=== PATIENT | male | born 1965 | race Caucasian/White ===

== ENCOUNTER 2020-01-25 23:43 | Emergency (ER) | payer MEDICARE, SELFPAY ==
[~2020-01-25] VITALS: Ht 177.8 cm; Wt 102.3 kg
[~2020-01-25 23:43] MED LIST: CARV-50 PO; LISI-600 PO
[2020-01-26 00:29] LABS: BASOPHILS % (AUTO) 0.1 % (0-1); EOSINOPHILS # (AUTO) 0.1 X10'3 (0-0.9); EOSINOPHILS % (AUTO) 1.4 % (0-6); HEMATOCRIT 45.2 % (42.0-52.0); HEMOGLOBIN 15.8 g/dl (14.0-17.9); LYMPHOCYTES # (AUTO) 1.8 X10'3 (1.1-4.8); LYMPHOCYTES % (AUTO) 16.7 % (21-51); MEAN CORPUSCULAR HEMOGLOBIN 32.8 PG (27.0-31.0); MEAN CORPUSCULAR VOLUME 93.6 FL (78-98); MEAN PLATELET VOLUME 6.5 FL (7.4-10.4); MONOCYTES % (AUTO) 9.5 % (2-12); NEUTROPHILS # (AUTO) 7.8 X10'3 (1.8-7.7); NEUTROPHILS % (AUTO) 72.3 % (42-75); PLATELET COUNT 427 X10'3 (140-440); RED BLOOD COUNT 4.83 X10'6 (4.70-6.10); RED CELL DISTRIBUTION WIDTH 13.4 % (11.5-14.5); WHITE BLOOD COUNT 10.8 X10'3 (4.5-11.0)
[2020-01-26 00:34] LABS: ALANINE AMINOTRANSFERASE 47 U/L (12-78); ALBUMIN 3.7 G/DL (3.4-5.0); ALBUMIN/GLOBULIN RATIO 0.8 (1.1-1.5); ALKALINE PHOSPHATASE 119 IU/L (46-116); ANION GAP 11 (8-16); ASPARTATE AMINO TRANSFERASE 28 U/L (10-37); BILIRUBIN,TOTAL 0.7 MG/DL (0.1-1.0); BLOOD UREA NITROGEN 25 MG/DL (7-18); CALCIUM 8.6 MG/DL (8.5-10.1); CHLORIDE 100 MMOL/L (99-107); CREATININE 2.49 MG/DL (0.60-1.10); GLUCOSE 138 MG/DL (70-104); LIPASE 137 U/L (73-393); POTASSIUM 3.9 MMOL/L (3.5-5.1); SODIUM 136 MMOL/L (135-145); TOTAL CARBON DIOXIDE 25.4 MMOL/L (24-32); TOTAL PROTEIN 8.6 G/DL (6.4-8.2); eGFR 27 ML/MIN
[2020-01-26] MEDS ORDERED: normal saline 1000ML IV soln IVB ONE (00:45)
[2020-01-26] MEDS ORDERED: bisacodyl 10mg suppository rectal RC ONE (01:15)
[2020-01-26] MEDS ORDERED: magnesium citrate 296ml oral solution PO ONE (01:15)
[2020-01-26 01:42] VITALS: BP 167/94
[2020-01-26] MEDS ORDERED: amLODIPine 5mg tablet PO ONE (01:55)
[2020-01-26] MEDS ORDERED: DOCU-171 PO (01:57)
== END 2020-01-26 02:08 | disposition home or self-care (01) ==
LOC: ER 23:44
DX: K59.00 Constipation, unspecified (principal); N18.9 Chronic kidney disease, unspecified; N17.9 Acute kidney failure, unspecified; I12.9 Hypertensive chronic kidney disease with stage 1 through stage 4 chronic kidney disease, or unspecified chronic kidney disease; G89.29 Other chronic pain; Z95.0 Presence of cardiac pacemaker; Z98.890 Other specified postprocedural states; Z72.89 Other problems related to lifestyle; Z79.899 Other long term (current) drug therapy
CPT/HCPCS: 36415; 74018; 80053; 83690; 85025; 99284; J7030

== ENCOUNTER 2020-03-15 17:13 | Emergency (ER) | payer MEDICARE ==
[~2020-03-15] VITALS: Ht 154.9 cm; Wt 95.5 kg
[~2020-03-15 17:13] MED LIST changes: +DOCU-171 PO
[2020-03-15 17:17] VITALS: BP 155/92
[2020-03-15] MEDS ORDERED: bacitracin 15gm ointment TP ONE (17:35)
[2020-03-15] MEDS ORDERED: HYDROcodone/acetaminophen 10/325mg tab PO ONE (17:35)
[2020-03-15] MEDS ORDERED: TETanus/Pertussis (Acell)/Diphther VAC/PF (Tdap-Adult) 0.5ml syringe IMVAC ONE (17:35)
[2020-03-15] MEDS ORDERED: ondansetron 4mg rapidly disintigrating tab PO ONE (17:35)
[2020-03-15] MEDS ORDERED: LIDOcaine 1% W/epiNEPHrine 1:200,000 10ml vial IJ ONE (17:35)
[2020-03-15] MEDS ORDERED: HYDR-4383 PO (18:34)
[2020-03-15] MEDS ORDERED: CEPH250T PO (18:34)
[2020-03-15] MEDS ORDERED: ONDA4TAB6 PO (18:34)
== END 2020-03-15 19:12 | disposition home or self-care (01) ==
LOC: ER 17:14
DX: S61.412A Laceration without foreign body of left hand, initial encounter (principal); I10 Essential (primary) hypertension; G89.29 Other chronic pain; Z95.0 Presence of cardiac pacemaker; Z98.890 Other specified postprocedural states; Z72.89 Other problems related to lifestyle; Z79.899 Other long term (current) drug therapy; W45.8XXA Other foreign body or object entering through skin, initial encounter; Y93.89 Activity, other specified; Y92.89 Other specified places as the place of occurrence of the external cause; Y99.8 Other external cause status
CPT/HCPCS: 12042; 73130; 99284

== ENCOUNTER 2020-03-29 12:27 | Emergency (ER) | payer MEDICARE ==
[~2020-03-29] VITALS: Ht 177.8 cm; Wt 93.2 kg
[~2020-03-29 12:27] MED LIST changes: +HYDR-4383 PO; +ONDA4TAB6 PO
[2020-03-29 12:33] VITALS: BP 136/82
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
== END 2020-03-29 13:19 | disposition home or self-care (01) ==
LOC: ER 12:28
DX: S61.412D Laceration without foreign body of left hand, subsequent encounter (principal); I10 Essential (primary) hypertension; G89.29 Other chronic pain; Z95.0 Presence of cardiac pacemaker; Z48.02 Encounter for removal of sutures; Z98.890 Other specified postprocedural states; Z72.89 Other problems related to lifestyle; Z79.899 Other long term (current) drug therapy
CPT/HCPCS: 99281

== ENCOUNTER 2020-04-01 14:48 | Emergency (ER) | payer MEDICARE ==
[~2020-04-01] VITALS: Ht 177.8 cm; Wt 95.5 kg
[2020-04-01 15:03] VITALS: BP 144/92
== END 2020-04-01 15:27 | disposition home or self-care (01) ==
LOC: ER 14:49
DX: R20.2 Paresthesia of skin (principal); Z48.02 Encounter for removal of sutures; I10 Essential (primary) hypertension; G89.29 Other chronic pain; Z95.0 Presence of cardiac pacemaker; Z98.890 Other specified postprocedural states
CPT/HCPCS: 99281

== ENCOUNTER 2020-08-12 15:18 | Emergency (ER) | payer MEDICARE ==
[~2020-08-12] VITALS: Ht 177.8 cm; Wt 95.5 kg
[~2020-08-12 15:18] MED LIST changes: +LIDOcaine 1% w/epiNEPHrine 1:200,000 30ml vial ONE
[2020-08-12 15:21] VITALS: BP 158/88
== END 2020-08-12 17:27 | disposition home or self-care (01) ==
LOC: ER 15:19
DX: S61.412A Laceration without foreign body of left hand, initial encounter (principal); I10 Essential (primary) hypertension; G89.29 Other chronic pain; Z95.0 Presence of cardiac pacemaker; Z72.89 Other problems related to lifestyle; Z79.899 Other long term (current) drug therapy; X58.XXXA Exposure to other specified factors, initial encounter; Y93.89 Activity, other specified; Y92.89 Other specified places as the place of occurrence of the external cause; Y99.8 Other external cause status
CPT/HCPCS: 12002; 99282

== ENCOUNTER 2021-04-25 09:22 | Emergency (ER) | payer MEDICARE ==
[~2021-04-25] VITALS: Ht 177.8 cm; Wt 97.7 kg
[~2021-04-25 09:22] MED LIST changes: -LIDOcaine 1% w/epiNEPHrine 1:200,000 30ml vial ONE; -LISI-600 PO; +LISI20TA28 PO
[2021-04-25 09:47] VITALS: BP 130/95
[2021-04-25] MEDS ORDERED: loperamide 2mg capsule PO ONE (09:55)
[2021-04-25] MEDS ORDERED: normal saline 1000ML IV soln IVB ONE (09:55)
[2021-04-25] MEDS ORDERED: glycopyrrolate 0.2mg/ml inj IV ONE (09:55)
[2021-04-25 10:26] LABS: BASOPHILS % (AUTO) 0.1 % (0-1); EOSINOPHILS % (AUTO) 0 % (0-6); HEMATOCRIT 51.7 % (42.0-52.0); HEMOGLOBIN 17.3 g/dl (14.0-17.9); LYMPHOCYTES # (AUTO) 1.4 X10'3 (1.1-4.8); LYMPHOCYTES % (AUTO) 17.2 % (21-51); MEAN CORPUSCULAR HEMOGLOBIN 31.9 PG (27.0-31.0); MEAN CORPUSCULAR HGB CONC 33.5 g/dL (33.0-36.5); MEAN CORPUSCULAR VOLUME 95.4 FL (78-98); MEAN PLATELET VOLUME 7.1 FL (7.4-10.4); MONOCYTES # (AUTO) 0.8 X10'3 (0-0.9); MONOCYTES % (AUTO) 10.2 % (2-12); NEUTROPHILS % (AUTO) 72.5 % (42-75); PLATELET COUNT 273 X10'3 (140-440); RED BLOOD COUNT 5.42 X10'6 (4.70-6.10); RED CELL DISTRIBUTION WIDTH 13.8 % (11.5-14.5); WHITE BLOOD COUNT 8.3 X10'3 (4.5-11.0)
[2021-04-25 10:38] LABS: ALANINE AMINOTRANSFERASE 32 U/L (12-78); ALBUMIN 3.7 G/DL (3.4-5.0); ALBUMIN/GLOBULIN RATIO 0.7 (1.1-1.5); ALKALINE PHOSPHATASE 124 IU/L (46-116); ANION GAP 15 (8-16); ASPARTATE AMINO TRANSFERASE 33 U/L (10-37); BILIRUBIN,TOTAL 0.5 MG/DL (0.1-1.0); BLOOD UREA NITROGEN 25 MG/DL (7-18); BUN/CREATININE RATIO 13.7 (5.4-32.0); CALCIUM 8.1 MG/DL (8.5-10.1); CHLORIDE 97 MMOL/L (99-107); CREATININE 1.82 MG/DL (0.60-1.10); GLUCOSE 144 MG/DL (70-104); POTASSIUM 4.3 MMOL/L (3.5-5.1); SODIUM 134 MMOL/L (135-145); TOTAL CARBON DIOXIDE 21.9 MMOL/L (24-32); TOTAL PROTEIN 8.8 G/DL (6.4-8.2); eGFR 39 ML/MIN
[2021-04-25] MEDS ORDERED: LOPE-144 PO (12:34)
[2021-04-25] MEDS ORDERED: AMOX-101 PO (12:34)
[2021-04-25] MEDS ORDERED: DEXA6TAB6 PO (12:40)
[2021-04-25] MEDS ORDERED: ALB0.5UD IH (12:40)
[2021-04-25] MEDS ORDERED: ALBU8.5H17 IH (12:54)
== END 2021-04-25 13:12 | disposition home or self-care (01) ==
LOC: ER 09:23
DX: U07.1 COVID-19 (principal); J02.9 Acute pharyngitis, unspecified; E86.0 Dehydration; R05.9 Cough, unspecified; R19.7 Diarrhea, unspecified; R50.9 Fever, unspecified; R51.9 Headache, unspecified; I10 Essential (primary) hypertension; G89.29 Other chronic pain; Z95.0 Presence of cardiac pacemaker; Z98.890 Other specified postprocedural states; Z72.89 Other problems related to lifestyle; Z79.2 Long term (current) use of antibiotics; Z79.899 Other long term (current) drug therapy
CPT/HCPCS: 36415; 80053; 82272; 85025; 87635; 96374; 99283; C9803; J7030; J3490

== ENCOUNTER 2022-09-02 20:47 | Emergency (ER) | payer MEDICARE ==
[~2022-09-02] VITALS: Ht 177.8 cm; Wt 97.7 kg
[~2022-09-02 20:47] MED LIST changes: +ALBU8.5H17 IH; +DEXA6TAB6 PO; +LOPE-144 PO
[2022-09-02 21:10] VITALS: BP 148/89
[2022-09-02 21:47] LABS: ALBUMIN 3.3 G/DL (3.4-5.0); ANION GAP 6 (8-16); BASOPHILS % (AUTO) 0.1 % (0-1); BLOOD UREA NITROGEN 27 MG/DL (7-18); CHLORIDE 101 MMOL/L (99-107); EOSINOPHILS # (AUTO) 0.3 X10'3 (0-0.9); EOSINOPHILS % (AUTO) 2.1 % (0-6); GLUCOSE 128 MG/DL (70-104); HEMATOCRIT 36.8 % (42.0-52.0); HEMOGLOBIN 12.1 g/dl (14.0-17.9); LYMPHOCYTES % (AUTO) 14.7 % (21-51); MEAN CORPUSCULAR HEMOGLOBIN 30.7 PG (27.0-31.0); MEAN CORPUSCULAR HGB CONC 32.9 g/dL (33.0-36.5); MEAN CORPUSCULAR VOLUME 93.2 FL (78-98); MEAN PLATELET VOLUME 6.3 FL (7.4-10.4); MONOCYTES # (AUTO) 1.2 X10'3 (0-0.9); MONOCYTES % (AUTO) 8.7 % (2-12); NEUTROPHILS % (AUTO) 74.4 % (42-75); PLATELET COUNT 493 X10'3 (140-440); POTASSIUM 4.7 MMOL/L (3.5-5.1); RED BLOOD COUNT 3.95 X10'6 (4.70-6.10); RED CELL DISTRIBUTION WIDTH 13.2 % (11.5-14.5); SODIUM 132 MMOL/L (135-145); WHITE BLOOD COUNT 13.4 X10'3 (4.5-11.0); eGFR 48 ML/MIN
[2022-09-02 21:56] LABS: CLARITY,URINE CLOUDY (Clear); COLOR,URINE YELLOW (Yellow); GLUCOSE, URINE NEGATIVE (Neg); KETONES,URINE NEGATIVE (Neg); LEUKOCYTE ESTERASE ,URINE LARGE (Neg); NITRITES, URINE POSITIVE (Neg); OCCULT BLOOD,URINE MODERATE (Neg); PH,URINE 5.5 (4.8-8.0); PROTEIN,URINE 30 mg/dl (Neg); UROBILINOGEN,URINE 0.2 E.U/dL (0.2-1.0)
[2022-09-02 21:57] LABS: UA COLLECTION TYPE CLN CATCH MIDSTREAM
[2022-09-02 22:03] LABS: BACTERIA,URINE 2+ /HPF (Neg); MUCUS STRANDS NONE SEEN /LPF (Neg); SQUAMOUS EPITHELIAL CELL,UR FEW /LPF (FEW); WBC,URINE TNTC /HPF (0-4)
[2022-09-02] MEDS ORDERED: LEVO750T68 PO (22:24)
== END 2022-09-02 22:32 | disposition home or self-care (01) ==
LOC: ER 20:48
DX: N39.0 Urinary tract infection, site not specified (principal); I10 Essential (primary) hypertension; G89.29 Other chronic pain
CPT/HCPCS: 36415; 74176; 80048; 81001; 85025; 87077; 87088; 87186; 99284

== ENCOUNTER 2024-02-26 20:07 | Emergency (ER) | payer MEDICARE ==
[~2024-02-26] VITALS: Ht 180.3 cm; Wt 101.4 kg
[2024-02-26] MEDS ORDERED: PRED20TA PO (21:14)
[2024-02-26 21:35] VITALS: BP 118/80; PULSE 83; RESP 15; TEMP 98.9; O2SAT 98
== END 2024-02-26 21:38 | disposition home or self-care (01) ==
LOC: ER 20:08
DX: B34.9 Viral infection, unspecified (principal); Z20.822 Contact with and (suspected) exposure to COVID-19; M54.9 Dorsalgia, unspecified; I10 Essential (primary) hypertension; G89.29 Other chronic pain; C80.1 Malignant (primary) neoplasm, unspecified; Z79.899 Other long term (current) drug therapy
CPT/HCPCS: 36415; 71045; 87811; 99284